=== PATIENT | male | born 1975 | race Caucasian/White ===

== ENCOUNTER 2019-12-03 18:58 | Inpatient (IN) ==
[2019-12-03 19:47] LABS: Basophils # 0.1 10*3/uL (0.0-0.2); Basophils % 0.3 % (0.0-0.8); Eosinophils # 0.3 10*3/uL (0.0-0.87); Eosinophils % 1.8 % (0.00-10.9); Hematocrit 44.6 VOL% (42.0-52.0); Hemoglobin 15.6 GM/DL (14.0-18.0); Immature Granulocytes % 0.5 %; Immature Granulocytes Absolute 0.09 #; Lymphocytes # 1.8 10*3/uL (1.4-4.0); Lymphocytes % 10.5 % (21.2-54.2); Mean Corpuscular Volume 88.3 FL (87-102); Mean Platelet Volume 9.4 FL (9.6-12.0); Monocytes % 5.1 % (1.7-12.7); Neutrophils % 81.8 % (38.7-73.9); Platelet Count 254 T/CUMM (130-400); Red Blood Count 5.05 MC/CUMM (3.8-5.5); Red Cell Distribution Width 12.3 % (9.3-17.3); White Blood Count 16.8 T/CUMM (4-12)
[2019-12-03 20:17] LABS: Albumin 4.3 G/DL (3.4-5.0); Bilirubin,Total 0.4 MG/DL (0.2-1.0); Osmolality,Calculated 285.2 MOS/KG (273-304); Total Protein 8.4 G/DL (6.4-8.3)
[2019-12-03 20:26] LABS: Apearance,Urine CLEAR (Clear); Bilirubin,Urine Negative (Negative); Blood, Urine Negative (Negative); Glucose,Urine (UA) >=500 mg/dL (Negative); Ketones,Urine Negative (Negative); Nitrite,Urine Negative (Negative); Protein,Urine Negative; RBC,Urine <1 /HPF (0-4); Urine Color Straw (Yellow); Urine Specific Gravity 1.027 (1.001-1.035)
[2019-12-03] MEDS ORDERED: LACTATED RINGERS 1,000 ML IV ONE (20:44)
[2019-12-03] MEDS ORDERED: DEXTROSE 50% 25 GM/50 ML VIAL IV PRN (21:23)
[2019-12-03] MEDS ORDERED: guaiFENesin/DM ER 600-30 MG TABLET PO PRN (21:23)
[2019-12-03] MEDS ORDERED: ALUMINUM/MAGNES/SIMETH MAX STR 30 ML UDCUP PO PRN (21:23)
[2019-12-03] MEDS ORDERED: hydrALAZINE 20 MG/1 ML VIAL IV PRN (21:23)
[2019-12-03] MEDS ORDERED: ONDANSETRON 4 MG/2 ML VIAL IV PRN (21:23)
[2019-12-03] MEDS ORDERED: ACETAMINOPHEN 325 MG TABLET PO PRN (21:23)
[2019-12-03] MEDS ORDERED: GLUCAGON 1 MG VIAL IM PRN (21:23)
[2019-12-03] MEDS ORDERED: NICOTINE 21 MG/24 HR PATCH TRANSDERM PRN (21:23)
[2019-12-03 21:59] LABS: Risk Ratio 9.34; Thyroid Stimulating Hormone 1.7 uIU/ml (0.358-3.74); VLDL CHOLESTEROL 88.8 MG/DL
[2019-12-04] MEDS: ASPIRIN 325 MG TABLET PO SCH ×2 (01:08→08:45)
[2019-12-04] MEDS: diphenhydrAMINE CAP 25 MG CAPSULE PO PRN ×2 (01:13→21:19)
[2019-12-04] MEDS: INSULIN REGULAR 100 UNIT/ML SUBCUT SCH ×5 (01:13→21:20)
[2019-12-04] MEDS: SODIUM CHLORIDE 0.9% 1,000 ML IV SCH ×2 (01:17→09:02)
[2019-12-04 03:02] LABS: Basophils % 0.3 % (0.0-0.8); Eosinophils # 0.4 10*3/uL (0.0-0.87); Hematocrit 41.6 VOL% (42.0-52.0); Hemoglobin 14.2 GM/DL (14.0-18.0); Immature Granulocytes % 0.5 %; Immature Granulocytes Absolute 0.07 #; Lymphocytes # 2.6 10*3/uL (1.4-4.0); Lymphocytes % 19.3 % (21.2-54.2); Mean Corpuscular HGB Conc 34.1 GM/DL (32-36); Mean Platelet Volume 9.5 FL (9.6-12.0); Monocytes % 5.2 % (1.7-12.7); Neutrophils % 71.7 % (38.7-73.9); Platelet Count 223 T/CUMM (130-400); Red Blood Count 4.62 MC/CUMM (3.8-5.5); Red Cell Distribution Width 12.4 % (9.3-17.3); White Blood Count 13.6 T/CUMM (4-12)
[2019-12-04 03:11] LABS: Albumin 3.7 G/DL (3.4-5.0); Bilirubin,Total 0.4 MG/DL (0.2-1.0); Calcium 8.5 MG/DL (8.5-10.1); Total Protein 7.5 G/DL (6.4-8.3)
[2019-12-04] MEDS ORDERED: ENOXAPARIN 150 MG/ML SYRINGE SUBCUT SCH (05:00)
[2019-12-04] MEDS ORDERED: POTASSIUM CHLORIDE RIDER 10 MEQ in PREMIX 1 EACH IV PRN (07:59)
[2019-12-04] MEDS ORDERED: MAGNESIUM SULF RIDER 2 GM in PREMIX 1 EACH IV PRN (07:59)
[2019-12-04] MEDS ORDERED: HEPARIN/NACL 0.9% 2 UNITS/ML 1,000 ML IV ONE (08:13)
[2019-12-04] MEDS ORDERED: LIDOCAINE 1%/EPI INJ 20 ML VIAL ONE (08:13)
[2019-12-04] MEDS ORDERED: MIDAZOLAM 2 MG/2 ML VIAL ONE (08:25)
[2019-12-04] MEDS ORDERED: fentaNYL 100 MCG/2 ML VIAL ONE (08:25)
[2019-12-04] MEDS ORDERED: NITROGLYCERIN DRIP 50 MG/250 ML BOTTLE IV ONE (08:26)
[2019-12-04] MEDS ORDERED: VERAPAMIL 5 MG/2 ML VIAL ONE (08:26)
[2019-12-04] MEDS ORDERED: DIAZEPAM 5 MG TABLET ONE (08:37)
[2019-12-04] MEDS: amLODIPine 5 MG TABLET PO SCH (08:45)
[2019-12-04] MEDS: NEBIVOLOL 10 MG TABLET PO SCH (08:45)
[2019-12-04] MEDS: CETIRIZINE 10 MG TABLET PO SCH (08:47)
[2019-12-04] MEDS ORDERED: diphenhydrAMINE CAP 50 MG CAPSULE PO ONE (08:48)
[2019-12-04] MEDS ORDERED: DIAZEPAM 5 MG TABLET PO ONE (08:48)
[2019-12-04] MEDS ORDERED: LISINOPRIL/HCTZ 20-25 MG TABLET PO SCH (09:00)
[2019-12-04] MEDS ORDERED: LIDOCAINE 1% 20 ML VIAL ONE (09:00)
[2019-12-04] MEDS ORDERED: ENOXAPARIN 60 MG/0.6 ML SYRINGE ONE (09:27)
[2019-12-04] MEDS ORDERED: TIROFIBAN 5,000 MCG/100 ML PREMIX IV ONE (09:38)
[2019-12-04] MEDS ORDERED: ENOXAPARIN 30 MG/0.3 ML SYRINGE ONE (09:38)
[2019-12-04] MEDS ORDERED: TICAGRELOR 90 MG TABLET ONE (09:54)
[2019-12-04] MEDS ORDERED: GLUCAGON 1 MG VIAL IM PRN (10:20)
[2019-12-04] MEDS ORDERED: HYDROmorphone 2 MG/1 ML VIAL IV PRN (10:20)
[2019-12-04] MEDS ORDERED: DEXTROSE 50% 25 GM/50 ML VIAL IV PRN (10:20)
[2019-12-04] MEDS ORDERED: ATORVASTATIN 40 MG TABLET PO SCH ×2 (21:00)
[2019-12-04] MEDS: TICAGRELOR 90 MG TABLET PO SCH (21:20)
[2019-12-05 07:42] LABS: Basophils % 0.4 % (0.0-0.8); Eosinophils # 0.2 10*3/uL (0.0-0.87); Eosinophils % 3.4 % (0.00-10.9); Hematocrit 41.3 VOL% (42.0-52.0); Hemoglobin 14.4 GM/DL (14.0-18.0); Immature Granulocytes % 0.4 %; Immature Granulocytes Absolute 0.03 #; Lymphocytes # 1.7 10*3/uL (1.4-4.0); Lymphocytes % 24.3 % (21.2-54.2); Mean Corpuscular HGB Conc 34.9 GM/DL (32-36); Mean Corpuscular Volume 88.6 FL (87-102); Mean Platelet Volume 9.2 FL (9.6-12.0); Neutrophils % 64.5 % (38.7-73.9); Platelet Count 185 T/CUMM (130-400); Red Blood Count 4.66 MC/CUMM (3.8-5.5); Red Cell Distribution Width 12.5 % (9.3-17.3); White Blood Count 6.9 T/CUMM (4-12)
[2019-12-05 07:47] VITALS: BP 166/91
[2019-12-05 08:06] LABS: Calcium 8.6 MG/DL (8.5-10.1)
[2019-12-05] MEDS: NEBIVOLOL 10 MG TABLET PO SCH (08:26)
[2019-12-05] MEDS: INSULIN REGULAR 100 UNIT/ML SUBCUT SCH (08:26)
[2019-12-05] MEDS: TICAGRELOR 90 MG TABLET PO SCH (08:27)
[2019-12-05] MEDS: amLODIPine 5 MG TABLET PO SCH (08:27)
[2019-12-05] MEDS: CETIRIZINE 10 MG TABLET PO SCH (08:29)
[2019-12-05] MEDS ORDERED: LOSARTAN 50 MG TABLET PO SCH (09:00)
[2019-12-05] MEDS ORDERED: PANTOPRAZOLE 40 MG TABLET PO SCH (09:00)
[2019-12-05] MEDS ORDERED: hydroCHLOROthiazide 12.5 MG CAPSULE PO SCH (09:00)
[2019-12-05] MEDS ORDERED: ASPIRIN EC 81 MG TABLET PO SCH (09:00)
== END 2019-12-05 11:34 | disposition home or self-care (01) | DRG 247 ==
LOC: N.EDINP 18:58 → N.ED 18:58 → SUATTDRO 21:23 → N.EDINP 22:11 → N.TELEN 23:09
PROVIDERS: ADMIT Internal Medicine; ATTEND Internal Medicine
PROC: CLCCHCL (ICD-10-PCS; 2019-12-04 09:45)